=== PATIENT | female | born 2000 | race Caucasian/White ===

== ENCOUNTER 2020-11-08 14:59 | Emergency (ER) | payer OTHER, SELFPAY ==
[2020-11-08 15:06] VITALS: BP 145/94; PULSE 66; RESP 16; TEMP 36.6; O2SAT 100; BMI 23.0
--- NOTE | 2020-11-08 17:15 | ED_ITS ---
HPI - Medical Clearance General Chief complaint: Body Fluid Exposure Stated complaint: Needle stick at work Time Seen by Provider: 11/08/20 17:09 Source: patient and RN notes reviewed Mode of arrival: ambulatory Limitations: no limitations History of Present Illness HPI Narrative: Patient is here today after sustaining needlestick to her right index finger. 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 Patient reports that the dog is fully vaccinated for rabies. Her last tetanus shot was more than 5 years ago. Patient denies any other symptoms. Area clean and dry no swelling mild local discomfort. Related Information Allergies Allergy/AdvReac Type Severity Reaction Status Date / Time No Known Allergies Allergy Verified 11/08/20 17:45 Review of Systems Review of Systems: Constitutional : No Weight loss, No Fever, No Chills, No Night Sweats, No Fatigue, No Malaise ENT/Mouth : No Hearing loss, No Ear Pain, No Nasal Congestion, No Sinus Pain, No Hoarseness, No sore throat, No Rhinorrhea, No Swallowing Difficulty Eyes: No Eye Pain, No Swelling, No Redness, No Foreign Body, No Discharge, No Vision Changes Cardiovascular : No Chest Pain, No SOB, No Dyspnea on Exertion, No Orthopnea, No Edema, No Palpitations Respiratory : No Cough, No Sputum, No Wheezing, No Smoke Exposure, No Dyspnea Gastrointestinal : No Nausea, No Vomiting, No Diarrhea, No Constipation, No abdominal Pain, No Hematochezia, No Melena Genitourinary : no irregular bleeding, No Dysuria, No Urinary Frequency, No Hematuria, No Urinary Incontinence, No Urgency, No Flank Pain, No Urinary Flow Changes, No Hesitancy Musculoskeletal : No joint pain, No Myalgias, No Joint Swelling Skin : No Skin Lesions, No rash small needle stick to right index finger Neuro : No Weakness, No Numbness, No Paresthesias, No Loss of Consciousness, No Dizziness, No Headache Psych : No Anxiety/Panic, No Depression, No SI/HI/AH/VH, No Social Issues, Heme/Lymph: No Bruising, No Bleeding,No Lymphadenopathy Endocrine : No Polyuria, No Polydipsia, No Temperature Intolerance Yes all other systems are reviewed and are negative [facility] Past Medical History Medical History (Updated 11/08/20 @ 17:27 by ERICK O[facility]PR[facility]) No known health problems Social History Social History Alcohol intake: never Smoked in Last 30 Days: No Use of substances other than those prescribed or required for medical reasons: No Any prior treatment program specific to substance use: No Advance Directives: No Advance Directives Information Provided: Yes Patient : No Physical Exam Vital Signs: Vital Signs: Last Vital Signs Temp 97.8 F 11/08/20 15:06 Pulse 66 11/08/20 15:06 Resp 16 11/08/20 15:06 BP 145/94 H 11/08/20 15:06 Pulse Ox 100 11/08/20 15:06 Body Mass Index 23.0 Const: General: healthy appearing, no acute distress and well developed Nutritional Appearance: well nourished Orientation/consciousness: patient oriented x3 Neck: Neck: Yes normal visual inspection, Yes full ROM and Yes trachea midline Thyroid: Thyroid normal Resp: Auscultation: clear to auscultation bilaterally Cardio: Rate: regular rate Rhythm: regular rhythm GI: Inspection: Yes normal to inspection and No distended Palpation (GI): No hepatosplenomegaly present Auscultation: normal bowel sounds Skin: General skin exam: elasticity normal, turgor normal and dry skin Trauma: puncture (Right index finger) Neuro: General: patient oriented x3 Course Course Course Narrative: 20-year-old female here today after getting stuck with dirty needle. Patient was drawing blood on a can iron dogs that was fully vaccinated with rabies and got stuck with a dirty needle. Last tetanus vaccine was over 5 years ago. We will send her home after getting her vaccinated with tetanus. She will follow-up with her PCP and watch for any symptoms of if sections to her needlestick area Discharge Plan Discharge Clinical Impression: Exposure to body fluid due to accidental hypodermic needlestick injury Patient Disposition: Home, Self-Care Instructions: Puncture Wound (ED) Additional Instructions: You were seen here today after getting stuck with dirty needle. The dog was vaccinated for rabies so we will not need to get the vaccine. You received tetanus vaccine in the ED today as your last one was over 5 years ago. Please monitor the puncture wound for any signs and symptoms of infection. You may return to your PCP in 2-3 5 days to recheck. You can return to emergency department if you will experience any concerning symptoms.
[2020-11-08] MEDS: Diphth,Pertus(ACell),Tet Adult 0.5 ML SYRINGE IM (17:51)
== END 2020-11-08 18:14 | disposition home or self-care (01) ==
PROVIDERS: Emergency Provider Emergency Medicine
DX: Z77.21 Contact with and (suspected) exposure to potentially hazardous body fluids (principal)
CPT/HCPCS: 90471; 90715; 99283; 99284